=== PATIENT | female | born 1995 | race American Indian/Alaskan Native ===

== ENCOUNTER 2017-10-26 13:51 | Emergency (ER) | payer MEDICAID ==
[2017-10-26 15:06] LABS: Bilirubin,Urine NEG (Negative); Blood,Urine NEG (Negative); Color,Urine Yellow (Yellow); Mucus,Urine FEW /HPF; Protein,Urine <15 mg/dL mg/dL (Negative); Urobilinogen,Urine < 2.0 mg/dL (<2.0)
[2017-10-26 15:07] LABS: HCG Qualitative,Urine Positive (Negative)
[2017-10-26 18:52] VITALS: BP 132/74
--- NOTE | 2017-10-26 21:54 | Ultrasound Report ---
FINAL REPORT PROCEDURE: US OB TRANSVAGINAL and transabdominal TECHNIQUE: Real-time transabdominal sonography of the uterus, placenta, amniotic fluid, adnexa, and fetus was performed with image documentation. Measurements were obtained to determine age/size. M-mode Doppler was used to document heartbeat. Transvaginal images of the cervix were also obtained. HISTORY: +hcg pelvic pain COMPARISON: No prior studies are available for comparison. FINDINGS: ADDITIONAL GESTATION: None. GENERAL: IUP: Single living intrauterine . Position: Transverse, with the head at the maternal left Placental position: Posterior and grade 1, without previa. Amniotic fluid volume: Subjectively within normal limits. No measurement was obtained MATERNAL: Uterus: Within normal limits. Cervical length: Transvaginal measurement is 3.8 cm. Internal Os: Closed. FETUS: Heart rate and rhythm: 156 BPM, Regular. anatomic survey: Not performed MEASUREMENTS: BPD: 3.8 centimeters, 17 weeks 4 days HC: 14.1 centimeters, 17 weeks 3 days AC: 12.2 centimeters, 17 weeks 6 days FL: 2.5 centimeters, 17 weeks 3 days Mean Gestational Age (composite criteria): 17 weeks 4 days Ratio biometry: Normal. Estimated Weight: 203 grams. Estimated Due Date (earliest scan): 04/01/2018 IMPRESSION: Single intrauterine gestation at 17 weeks 4 days. Estimated due date: 04/01/2018. Normal survey with appropriate growth. PROCEDURE: TECHNIQUE: HISTORY: COMPARISON: FINDINGS: IMPRESSION:
--- NOTE | 2017-10-26 22:03 | Emergency Department Report ---
ED Female HPI - General Chief complaint: Abdominal Pain Stated complaint: ABD PAIN/17WKS Time Seen by Provider: 10/26/17 21:57 Source: patient Mode of arrival: Ambulatory Limitations: No Limitations - History of Present Illness Initial comments: Patient is 22 years old female with past medical history. Patient is 1 para 0 at 17 weeks . Patient presented to the ER complaining of abdominal pain on and off for the last few weeks. 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 Patient denied any fever, nausea or vomiting. No diarrhea. Patient denied any vaginal bleeding or vaginal discharge. - Related Data Allergies Allergy/AdvReac Type Severity Reaction Status Date / Time No Known Allergies Allergy Unverified 10/26/17 14:00 ED Review of Systems ROS: Stated complaint: ABD PAIN/17WKS Other details as noted in HPI Comment: All other systems reviewed and negative Constitutional: denies: chills, fever Cardiovascular: denies: chest pain, palpitations, dyspnea on exertion Gastrointestinal: abdominal pain ED Past Medical Hx - Past Medical History Previous Medical History?: No - Surgical History Past Surgical History?: Yes Additional Surgical History: right knee scope - Social History Smoking Status: Never Smoker Substance Use Type: None ED Physical Exam - General Limitations: No Limitations General appearance: alert, in no apparent distress - Head Head exam: Present: atraumatic, normocephalic, normal inspection - ENT ENT exam: Present: normal exam, normal orophraynx, mucous membranes moist - Respiratory Respiratory exam: Present: normal lung sounds bilaterally. Absent: respiratory distress, wheezes, rales, rhonchi, stridor - Cardiovascular Cardiovascular Exam: Present: regular rate, normal rhythm, normal heart sounds - GI/Abdominal GI/Abdominal exam: Present: soft, normal bowel sounds. Absent: distended, tenderness, guarding, rebound, rigid, organomegaly, mass, bruit, pulsatile mass , hernia - Extremities Exam Extremities exam: Present: normal inspection, full ROM, normal capillary refill. Absent: tenderness, calf tenderness - Back Exam Back exam: Present: normal inspection, full ROM. Absent: CVA tenderness (R), CVA tenderness (L), muscle spasm, paraspinal tenderness, vertebral tenderness, rash noted - Neurological Exam Neurological exam: Present: alert, oriented X3, CN II-XII intact, normal gait, reflexes normal - Skin Skin exam: Present: warm, intact, normal color ED Course Vital Signs 10/26/17 10/26/17 14:00 18:51 Temperature 98.3 F Pulse Rate 89 98 H Respiratory 18 16 Rate Blood Pressure 118/70 132/74 O2 Sat by Pulse 99 99 Oximetry ED Medical Decision Making - Radiology Data Radiology results: report reviewed Referring Physician: LEANNE GILLETTE Patient Name: JUSTIN BUENO Date of : 1995 Sex: Female Report Date: 2017-10-26 Report Status: Finalized Findings [facility] [address] [place] [address] Ultrasound Report Signed Patient: JUSTIN BUENO MR#: [id number] : 1995 Acct:[id number] Age/Sex: 22 / F ADM Date: 10/26/17 Loc: ED Attending Dr: Ordering Physician: LEANNE GILLETTE MD Date of Service: 10/26/17 Procedure(s): US OB transvaginal Accession Number(s): [id number] cc: LEANNE GILLETTE MD FINAL REPORT PROCEDURE: US OB TRANSVAGINAL and transabdominal TECHNIQUE: Real-time transabdominal sonography of the uterus, placenta, amniotic fluid, adnexa, and fetus was performed with image documentation. Measurements were obtained to determine age/size. M-mode Doppler was used to document heartbeat. Transvaginal images of the cervix were also obtained. HISTORY: +hcg pelvic pain COMPARISON: No prior studies are available for comparison. FINDINGS: ADDITIONAL GESTATION: None. GENERAL: IUP: Single living intrauterine . Position: Transverse, with the head at the maternal left Placental position: Posterior and grade 1, without previa. Amniotic fluid volume: Subjectively within normal limits. No measurement was obtained MATERNAL: Uterus: Within normal limits. Cervical length: Transvaginal measurement is 3.8 cm. Internal Os: Closed. FETUS: Heart rate and rhythm: 156 BPM, Regular. anatomic survey: Not performed MEASUREMENTS: BPD: 3.8 centimeters, 17 weeks 4 days HC: 14.1 centimeters, 17 weeks 3 days AC: 12.2 centimeters, 17 weeks 6 days FL: 2.5 centimeters, 17 weeks 3 days Mean Gestational Age (composite criteria): 17 weeks 4 days Ratio biometry: Normal. Estimated Weight: 203 grams. Estimated Due Date (earliest scan): 04/01/2018 IMPRESSION: Single intrauterine gestation at 17 weeks 4 days. Estimated due date: 04/01/2018. Normal survey with appropriate growth. Transcribed By: [facility] Dictated By: KIKO HORN M.D. Electronically Authenticated By: KIKO HORN M.D. Signed Date/Time: 10/26/172145 DD/ 45 TD/TT: 10/26/172145 Critical care attestation.: If time is entered above; I have spent that time in minutes in the direct care of this critically ill patient, excluding procedure time. ED Disposition Clinical Impression: Abdominal pain affecting Disposition: DC-01 TO HOME OR SELFCARE Is pt being admited?: No Condition: Stable Instructions: Abdominal Pain in (ED) Referrals: PRIMARY CARE, [Primary Care Provider] - 3-5 Days
== END 2017-10-26 22:14 | disposition home or self-care (01) ==
LOC: ED 13:51
DX: O26.892 Other specified pregnancy related conditions, second trimester (principal); R10.9 Unspecified abdominal pain; Z3A.17 17 weeks gestation of pregnancy
CPT/HCPCS: 76805; 76817; 81001; 81025; 99284

== ENCOUNTER 2018-03-22 12:46 | Inpatient (IN) | payer MEDICAID ==
[2018-03-22] MEDS ORDERED: LACTATED RINGERS 1,000 ML ONE (14:10)
[2018-03-22] MEDS ORDERED: STADOL ONE (14:10)
[2018-03-22] MEDS ORDERED: STADOL IV PRN (14:15)
[2018-03-22 14:20] LABS: Hematocrit 33.5 % (30.3-42.9); Mean Corpuscular HGB Conc 36 % (30-34); Mean Corpuscular Volume 81 fl (79-97); Platelet Count 289 K/mm3 (140-440); Red Blood Count 4.16 M/mm3 (3.65-5.03); Red Cell Distribution Width 16.2 % (13.2-15.2)
[2018-03-22] MEDS ORDERED: BRETHINE SUB-Q PRN (15:10)
[2018-03-22] MEDS ORDERED: MINERAL OIL PO PRN (15:10)
[2018-03-22] MEDS ORDERED: ZOFRAN IV PRN (15:10)
[2018-03-22] MEDS ORDERED: XYLOCAINE 2% INFILTRATI ONE (15:10)
[2018-03-22] MEDS ORDERED: BRETHINE IVP PRN (15:10)
[2018-03-22] MEDS ORDERED: NARCAN 0.4 MG/1 ML IV PRN (15:10)
[2018-03-22] MEDS ORDERED: SUBLIMAZE IV PRN (15:10)
[2018-03-22] MEDS ORDERED: LACTATED RINGERS 1,000 ML IV ONE (15:14)
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
[2018-03-22] MEDS ORDERED: LACTATED RINGERS 1,000 ML IV SCH (16:00)
[2018-03-22] MEDS ORDERED: PITOCin/NS 20 UNIT/1000ML DRIP 20 UNITS/1,000 ML BAG IV SCH (16:00)
[2018-03-22] MEDS ORDERED: PITOCin/NS 30 UNIT/500ML 30 UNITS/500 ML BAG IV SCH (16:00)
[2018-03-22] MEDS ORDERED: NARCAN 2 MG/2 ML IV PRN (16:04)
--- NOTE | 2018-03-22 16:04 | Anesthesia Consultation ---
Anesthesia Consult and Med Hx Date of service: 03/22/18 - Airway Anesthetic Teeth Evaluation: Good ROM Head & Neck: Adequate Mental/Hyoid Distance: Adequate Mallampati Class: Class II Intubation Access Assessment: Probably Good - Pre-Operative Health Status ASA Pre-Surgery Classification: ASA2 Proposed Anesthetic Plan: Epidural, Spinal - Pulmonary Hx Asthma: No - Cardiovascular System Hx Hypertension: No - Central Nervous System Hx Seizures: No Hx Psychiatric Problems: Yes (depression, anxiety, PTSD) - Endocrine Hx Renal Disease: No Hx Hypothyroidism: No Hx Hyperthyroidism: No - Hematic Hx Anemia: Yes Hx Sickle Cell Disease: No - Other Systems Hx Alcohol Use: No
[2018-03-22] MEDS: fentaNYL-BUPIV 2 MCG/ML-0.125% 200 MCG/100 ML BAG EPIDURAL SCH ×2 (16:52→23:51)
[2018-03-22 18:19] LABS: Hemoglobin 10.7 gm/dl (10.1-14.3); Mean Corpuscular HGB Conc 35 % (30-34); Mean Corpuscular Volume 82 fl (79-97); Platelet Count 254 K/mm3 (140-440); Red Cell Distribution Width 16.6 % (13.2-15.2)
--- NOTE | 2018-03-23 06:33 | Procedure Note ---
OB Delivery Note - Delivery Surgeon: GERARDO PATEL Estimated blood loss: 200cc - Vaginal Intrapartum events: meconium Delivery augmentation: rupture of membranes Delivery monitor: external FHT Route of delivery: Indicators for instrumentation: nonreassuring FHR tracing Delivery placenta: spontaneous Delivery cord: nuchal cord Delivery laceration: 1st degree Delivery repair: vicryl Anesthesia: epidural - A at 1 minute: 8 at 5 minutes: 9 Infant Gender: Female (Weight 8lb 5oz, 3768g, spontaneous cry, NICU present for evaluation)
[2018-03-23] MEDS ORDERED: BENADRYL PO PRN (09:00)
[2018-03-23] MEDS ORDERED: TUCKS PAD TP PRN (09:00)
[2018-03-23] MEDS ORDERED: TYLENOL PO PRN (09:00)
[2018-03-23] MEDS ORDERED: SODIUM CHLORIDE FLUSH SYRINGE 10 ML IV PRN (09:30)
[2018-03-23] MEDS ORDERED: PHENERGAN PO PRN (09:30)
[2018-03-23] MEDS ORDERED: LANSINOH TP PRN (09:30)
[2018-03-23] MEDS ORDERED: PHENERGAN PR PRN (09:30)
[2018-03-23] MEDS ORDERED: IBUPROFEN PO PRN (09:30)
[2018-03-23] MEDS ORDERED: ZOFRAN IV PRN (09:30)
[2018-03-23] MEDS ORDERED: NORCO 5/325 PO PRN (09:30)
[2018-03-23] MEDS ORDERED: PITOCin/NS 20 UNIT/1000ML DRIP 20 UNITS/1,000 ML BAG IV SCH (09:30)
[2018-03-23] MEDS ORDERED: DULCOLAX PR PRN (10:00)
[2018-03-23] MEDS: PRENATAL VITAMIN PO SCH (11:48)
[2018-03-23] MEDS: FEOSOL PO SCH ×2 (11:48→21:35)
[2018-03-23] MEDS: COLACE PO SCH ×2 (11:48→21:35)
[2018-03-23 20:00] LABS: Hematocrit 28.1 % (30.3-42.9); Hemoglobin 9.7 gm/dl (10.1-14.3)
[2018-03-23] MEDS ORDERED: MILK OF MAGNESIA PO PRN (22:00)
[2018-03-24] MEDS ORDERED: BOOSTRIX IM ONE (06:00)
--- NOTE | 2018-03-24 09:01 | Progress Note ---
Assessment and Plan - Patient Problems (1) (normal spontaneous vaginal delivery) Onset Date: ~03/24/18 Current Visit: Yes Status: Chronic Plan to address problem: A: S/P - PPD #1 Doing well Asymptomatic anemia - stable P: May go home today (2) Acute blood loss anemia Onset Date: ~03/24/18 Current Visit: Yes Status: Resolved Subjective - Subjective Date of service: 03/24/18 Principal diagnosis: s/p - PPD #1 Interval history: Pt is feeling well without complaints. Bleeding improved. Wants to go home today. Patient reports: appetite normal, voiding normally, pain well controlled, flatus, ambulating normally, no dizzy ambulation, no nauseated [place]: doing well, nursing well Objective - Vital Signs Latest vital signs: Vital Signs Temp Pulse Resp BP 03/24/18 08:05 98.4 F 102 H 18 122/60 03/24/18 00:00 98.7 F 74 18 104/76 03/23/18 19:30 98.7 F 74 16 114/72 03/23/18 16:50 98.2 F 91 H 18 118/57 03/23/18 10:51 98.3 F 87 18 130/77 Intake and Output 03/23/18 03/24/18 03/24/18 22:59 06:59 14:59 Intake Total 780 120 Output Total 1100 Balance -320 120 Intake: Oral 480 120 Intake, Free Water 300 Output: Urine 1100 Indwelling Catheter 1100 Other: Total, Intake Amount 480 120 Total, Output Amount 1100 # Voids Indwelling Catheter 2 - Exam Breasts: Present: deferred Cardiovascular: Present: Regular rate Lungs: Present: Clear to auscultation Abdomen: Present: normal appearance, soft Uterus: Present: normal, firm, fundal height below umbilicus Extremities: Present: normal - Labs Labs: Abnormal lab results 03/23/18 Range/Units 19:16 Hgb 9.7 L (10.1-14.3) gm/dl Hct 28.1 L (30.3-42.9) % Laboratory Tests 03/22/18 03/22/18 03/22/18 14:05 14:05 17:08 WBC 14.2 H 14.2 H RBC 4.16 3.80 Hgb 12.0 10.7 Hct 33.5 31.0 MCV 81 82 MCH 29 28 MCHC 36 H 35 H RDW 16.2 H 16.6 H Plt Count 289 254 RPR Blood Type O POSITIVE Antibody Screen Negative 03/22/18 03/23/18 17:08 19:16 WBC RBC Hgb 9.7 L Hct 28.1 L MCV MCH MCHC RDW Plt Count RPR Nonreactive Blood Type Antibody Screen
[2018-03-24] MEDS: PRENATAL VITAMIN PO SCH (09:19)
[2018-03-24] MEDS: COLACE PO SCH ×2 (09:19→22:24)
[2018-03-24] MEDS: IBUPROFEN PO SCH ×2 (09:19→22:25)
[2018-03-24] MEDS: FEOSOL PO SCH ×2 (09:20→22:25)
--- NOTE | 2018-03-24 10:26 | Discharge Summary ---
Providers - Providers Date of Admission: 03/22/18 13:55 Date of discharge: 03/24/18 Attending physician: KIM BACK Primary care physician: KIM BACK Hospitalization Reason for admission: active labor, IUP at term Delivery: Episiotomy: none Laceration: 1st degree Other procedures: none complications: none Discharge diagnosis: IUP at term delivered [place] baby: female Hospital course: Unremarkable. Condition at discharge: Good Disposition: DC-01 TO HOME OR SELFCARE - Discharge Diagnoses (1) (normal spontaneous vaginal delivery) Status: Chronic (2) Acute blood loss anemia Status: Resolved Plan - Discharge Medications Prescriptions: Ferrous Sulfate [Feosol 325 MG tab] 325 mg PO BID #60 tablet Ibuprofen [Motrin 600 MG tab] 600 mg PO Q6H #30 tablet Vit-Fe Fumar-FA [ Vitamin] 1 each PO QDAY #30 tablet - Provider Discharge Summary Activity: routine, no sex for 6 weeks, no heavy lifting 4 weeks, no strenuous exercise Diet: routine Instructions: routine Additional instructions: [] Smoking cessation referral if applicable(refer to patient education folder for contact #) [] Refer to [facility] Booklet Call your doctor immediately for: * Fever > 100.5 * Heavy vaginal bleeding ( >1 pad per hour) * Severe persistent headache * Shortness of breath * Reddened, hot, painful area to leg or breast * Drainage or odor from incision. * Keep incision clean and dry at all times and follow doctor's instructions regarding bathing/showering - Follow up plan Follow up: KIM BACK MD [Primary Care Provider] - 6 Weeks JONAS JONES CNM [Advanced Practice Nurse] - 6 Weeks
[2018-03-24] MEDS ORDERED: M-M-R II VACCINE SUB-Q ONE (11:00)
[2018-03-25] MEDS: IBUPROFEN PO SCH (05:22)
[2018-03-25 16:27] VITALS: BP 122/70
== END 2018-03-25 16:30 | disposition home or self-care (01) | DRG 775 ==
LOC: TRG 12:46 → LD 13:55 → OB 03-23 09:40
PROVIDERS: ADMIT Obstetrics & Gynecology; ATTEND Obstetrics & Gynecology
PROC: 10E0XZZ Delivery of Products of Conception, External Approach (ICD-10-PCS; principal; 2018-03-23)
PROC: 0HQ9XZZ Repair Perineum Skin, External Approach (ICD-10-PCS; 2018-03-23)
PROC: 3E0R3BZ Introduction of Anesthetic Agent into Spinal Canal, Percutaneous Approach (ICD-10-PCS; 2018-03-23)
PROC: 00HU33Z Insertion of Infusion Device into Spinal Canal, Percutaneous Approach (ICD-10-PCS; 2018-03-23)
DX: O77.0 Labor and delivery complicated by meconium in amniotic fluid (principal); O69.81X0 Labor and delivery complicated by cord around neck, without compression, not applicable or unspecified; O70.0 First degree perineal laceration during delivery; Z3A.38 38 weeks gestation of pregnancy; Z37.0 Single live birth; O90.81 Anemia of the puerperium; D62 Acute posthemorrhagic anemia; O76 Abnormality in fetal heart rate and rhythm complicating labor and delivery
CPT/HCPCS: 36415; 59025; 85014; 85018; 85027; 86592; 86850; 86900; 86901; G0378; J0595; J2590; J7120; Q0177